=== PATIENT | female | born 1980 | race Caucasian/White ===

== ENCOUNTER 2022-08-08 11:57 | Day surgery (SDC) | payer BC ==
[~2022-08-08 11:57] MED LIST: Albuterol 0.083% 2.5 MG/3 ML Neb Soln NEB PRN; HYDROmorphone 1 MG/ML Syringe IVPUSH PRN; Lactated Ringers 1,000 ML IV SCH; Metoclopramide 10 MG/2 ML SDV IVPUSH PRN; Morphine 2 MG/ML SYRINGE IVPUSH PRN; Morphine Sulfate 10mg/ml SDV ONE; Naloxone 0.4 MG/ML SDV IVPUSH PRN; Ondansetron 4 MG/2 ML SDV IVPUSH PRN; Propofol 200 MG/20 ML SDV ONE; ceFAZolin 2 GM in Premix Bag 1 BAG IV ONE; droPERidol 5 MG/2 ML SDV IVPUSH PRN; fentaNYL 100 MCG/2 ML SDV ONE; fentaNYL 50 MCG/ML SDV IVPUSH PRN
[2022-08-08] MEDS ORDERED: ceFAZolin 2 GM Vial ONE (12:50)
[2022-08-08] MEDS ORDERED: Dexamethasone 4 MG/ML 5 ML MDV ONE (12:54)
[2022-08-08] MEDS ORDERED: Ketamine 500 mg/10 ML MDV ONE (12:56)
[2022-08-08] MEDS ORDERED: Famotidine 20 MG/2 ML SDV ONE (13:12)
[2022-08-08] MEDS ORDERED: Ondansetron 4 MG/2 ML SDV ONE (13:13)
[2022-08-08] MEDS ORDERED: fentaNYL 100 MCG/2 ML SDV ONE ×2 (13:17→13:35)
[2022-08-08] MEDS ORDERED: Propofol 200 MG/20 ML SDV ONE ×2 (13:18→13:43)
[2022-08-08] MEDS ORDERED: Fluorescein 5 ML Vial ONE (13:52)
[2022-08-08] MEDS ORDERED: Furosemide 40 MG/4 ML VIAL ONE (13:52)
[2022-08-08] MEDS ORDERED: Acetaminophen/oxyCODONE 325-5 MG Tab PO PRN (14:13)
[2022-08-08] MEDS ORDERED: Ondansetron 4 MG/2 ML SDV IVPUSH PRN (14:13)
[2022-08-08] MEDS ORDERED: Ketorolac 30 MG/ML SDV IVPUSH ONE (14:13)
[2022-08-08] MEDS ORDERED: Promethazine 25 MG/ML SDV IM PRN (14:13)
[2022-08-08] MEDS ORDERED: Lactated Ringers 1,000 ML IV SCH (14:15)
[2022-08-08] MEDS: Acetaminophen/oxyCODONE 325-5 MG Tab PO PRN ×2 (15:31→19:31)
[2022-08-08] MEDS: Ketorolac 30 MG/ML SDV IVPUSH SCH (19:33)
[2022-08-09] MEDS: Acetaminophen/oxyCODONE 325-5 MG Tab PO PRN ×2 (01:28→08:42)
[2022-08-09] MEDS: Ketorolac 30 MG/ML SDV IVPUSH SCH ×2 (01:29→07:34)
[2022-08-09 06:31] LABS: CARBON DIOXIDE,CO2 23.7 mmol/L (21.0-32.0); POTASSIUM,K 3.9 mmol/L (3.5-5.1)
[2022-08-09] MEDS ORDERED: QUEtiapine 25 MG Tab PO SCH (09:00)
[2022-08-09] MEDS ORDERED: amLODIPine 2.5 MG Tab PO SCH (09:00)
[2022-08-09] MEDS ORDERED: Verapamil 180 MG Tab.ER PO SCH (09:00)
== END 2022-08-09 09:20 | disposition home or self-care (01) ==
LOC: MW.SDS 11:57 → MW.OB 15:14 → MW.SDS 08-09 09:20
PROVIDERS: ATTEND Obstetrics & Gynecology
DX: N85.8 Other specified noninflammatory disorders of uterus (principal); N73.6 Female pelvic peritoneal adhesions (postinfective); N13.30 Unspecified hydronephrosis; Q51.28 Other and unspecified doubling of uterus; F41.9 Anxiety disorder, unspecified; I10 Essential (primary) hypertension; K21.9 Gastro-esophageal reflux disease without esophagitis; M79.7 Fibromyalgia; Z79.899 Other long term (current) drug therapy; Z98.51 Tubal ligation status; Z87.891 Personal history of nicotine dependence
CPT/HCPCS: 36415; 58260; 80048; 85025; A9270; J0131; J0690; J1100; J1170; J1885; J1940; J2270; J2704; J3010; J3490; J7120; 00944; J2405